=== PATIENT | male | born 1970 | race Two or more races ===

== ENCOUNTER 2025-01-24 21:27 | Inpatient (IN) | payer MEDICAID ==
[~2025-01-24] VITALS: Ht 172.7 cm; Wt 146.0 kg
--- NOTE | 2025-01-24 21:47 | ELECTROCARDIOGRAPH REPORT ---
[facility] Test Date: 2025-01-24 Test Time: 21:44:22 Pat Name: PAYTON GUIDO Department: EMERGENCY ROOM Room: ORTHO 4009 Gender: M Senior Clinical Study Manager: DARIUS : 1970 Requested By: JOSELINE DAVILA Order Number: [id number] Reading MD: Dr. Jone Hanna Measurements Intervals [address] Rate: 78 P: -2 RI: 150 QRS: -15 QRSD: 90 T: 15 QT: 414 QTc: 472 Interpretive Statements Sinus rhythm Borderline left axis deviation Low voltage, extremity and precordial leads Probable anteroseptal infarct, old Electronically Signed On 01-25-2025 11:00:[address] Jone Hanna Please click the below link to view image of tracing.
--- NOTE | 2025-01-24 21:58 | Physician Documentation ---
History of Present Illness ~ Chief Complaint: Bloody Stools Stated Complaint: GI BLEED Time Seen by MD: 21:30 HPI This is a 54-year-old gentleman with a known history of alcohol abuse, recent admission to a sent to hospital for upper GI bleed, comes in for a Gastroenterology consultation as a transfer from outside facility for evaluation of lower GI bleed. Evidently he had several bowel movements with a atiya blood and bright red blood per rectum. Not associated with a any new pain. No particular palliating or aggravating factors. Was found hypotensive and requiring transfusion at the outside facility. Upon arrival here he appears to be stable, denies any new complaints. Denies chest pain or difficulty breathing. Records from the outside facility reviewed. Patient's initial hemoglobin was 6.7. No repeat hemoglobin was done. Metabolic panel was notable for BUN of 12 and creatinine of 1.14 decreasing suspicion for upper GI bleed. Lipase was 180, normal CT angiography was obtained showing mild atherosclerotic changes, no evidence of significant vascular occlusion. No evidence of extravasation of contrast. Embolization coils between duodenum and pancreas noted. Patient was started octreotide bolus and drip, Protonix bolus and drip. He was given antibiotics. 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 HPI from the outside facility notes ant is a 54-year-old male who presents to the ED for evaluation of GI bleed. Third GI bleed, he has been to she has a, in the last 24 hours. History of GI bleeds in the past. Chest recently patient had a duodenal arterial bleed requiring coil placement. This was done at the [facility]. Represents to our emergency department in hemorrhagic shock. For the after I have any ER had a large amount of hematochezia stool. Patient received total of 4 units of blood calcium. He also received 2 units of FFP. He received a unit of platelets and subsequent 2 units FFP as well. Review of Systems ROS 10 point review of systems was performed and unless noted above in HPI is negative for acute process/complaint. Physical Exam Vital Signs: Temperature: 99.0, Source: Oral, Heart Rate: 77, Respiratory Rate: 20, BP: 137/79, Pulse Oximetry: 95, Weight: 146.000 Oxygen Flow Rate: 0 Physical Exam GENERAL: Awake, alert, oriented, GCS 15, no apparent distress, non-toxic appearing, answers questions, follows commands appropriately. HEENT: Atraumatic, normocephalic, pupils equal, extraocular muscles intact, sclerae anicteric, mucus membranes moist, oropharynx is clear, no stridor. NECK: supple, full active range of motion, trachea midline, no thyromegaly, no lymphadenopathy, no JVD. CARDIOVASCULAR: regular rate/rhythm, no murmurs/gallops/rubs, Pulses are 2+ in all extremities and symmetric. Capillary refill less than 2 seconds. PULMONARY: Nonlabored, good air movement ,no respiratory distress, speaking in full sentences, clear to auscultation bilaterally, no wheezing, no ronchi, no rales, no accessory muscle use. GASTROINTESTINAL: Soft, non-tender, non-distended, normal active bowel sounds, no organomegaly, no pulsatile masses, no CVA tenderness. NEUROLOGIC: Lucid with normal mental status. Normal facial symmetry. Moves all extremities symmetrically and with purpose. No truncal ataxia. Speech is fluid without evidence of dysarthria or aphasia, no focal deficits appreciated. MUSCULOSKELETAL: There is full range of motion of all extremities. There is no joint pain or joint swelling or joint erythema. There is no muscle pain or tenderness or swelling. EXTREMITIES: warm, well-perfused, no cyanosis, no clubbing, no edema, no acute deformities. Skin: warm, dry, no rashes or lesions, no jaundice, no petechiae orpurpura. No ecchymosis. PSYCHIATRIC: Normal affect, normal insight, normal concentration. Focused exam: [] Progress Results/Orders Results/Orders Orders - RANDY DAVILA DO Saline Lock (01/24/25 21:45) Monitor (01/24/25 21:45) Nothing By Mouth (01/25/25 Breakfast) Completed Orders - RANDY DAVILA DO Cbc/Diff (01/24/25 21:45) CMP (01/24/25 21:45) PBNP (01/24/25 21:45) Electrocardiogram (01/24/25 21:45) Type And Screen (01/24/25 21:48) Vital Signs 01/24/25 01/24/25 01/24/25 21:36 22:41 23:10 Temp 99.0 Pulse 77 75 Resp 20 21 18 B/P (MAP) 137/79 126/75 (92) Pulse Ox 95 94 O2 Flow Rate 0 0 Laboratory Tests Test 01/24/25 22:01 White Blood Count 9.2 Red Blood Count 3.95 L Hemoglobin 11.6 L Hematocrit 33.4 L Mean Corpuscular Volume 84.6 Mean Corpuscular Hemoglobin 29.3 Mean Corpuscular Hemoglobin Concent 34.6 Red Cell Distribution Width 19.7 H Platelet Count 239 Mean Platelet Volume 7.5 Neutrophils (%) (Auto) 65.1 Lymphocytes (%) (Auto) 21.1 Monocytes (%) (Auto) 9.9 Eosinophils (%) (Auto) 2.8 Basophils (%) (Auto) 1.1 H Neutrophils # (Auto) 6.0 Lymphocytes # (Auto) 1.9 Monocytes # (Auto) 0.9 Eosinophils # (Auto) 0.3 Basophils # (Auto) 0.1 CBC Comment Platelet Estimate Normal Red Blood Cell Morphology Perf Basophilic Stippling Anisocytosis 2+ Sodium Level 141 Potassium Level 4.6 Chloride Level 108 H Carbon Dioxide Level 26.7 Anion Gap 6 L Blood Urea Nitrogen 11 Creatinine 1.15 H Estimated GFR/1.73 m2 66 BUN/Creatinine Ratio 9.6 L Glucose Level 111 H Calcium Level 7.7 L Total Bilirubin 2.4 H Aspartate Amino Transf (AST/SGOT) 31 Alanine Aminotransferase (ALT/SGPT) 16 Alkaline Phosphatase 74 Pro-B-Type Natriuretic Peptide 434 H Total Protein 6.2 L Albumin 2.5 L Globulin 3.7 Albumin/Globulin Ratio 0.7 L Chemistry Comments EKG/XRAY/CT/US/VASC/MRI EKG : Additional Comment EKG was obtained and interpreted by myself showing sinus rhythm of 78, normal CA interval, narrow QRS, no QT prolongation, normal axis, no STEMI. Medical Decision Making Findings Facility Status: ED Holds, [facility] process The plan was discussed with the patient, who demonstrates clear understanding of the plan and is in agreement with the plan unless otherwise noted in the chart. All questions have been answered, all concerns were addressed unless otherwise documented. I was available throughout their ED stay for frequent reassessment and questions. Differential Diagnoses (considered and possible or likely): [Hemorrhoids, lower GI bleed, hemodynamically stability including hemorrhagic shock-resolved, very brisk upper GI bleed] ??Differential Diagnoses (considered and unlikely, not requiring evaluation currently): [No evidence of trauma] MDM Data Please see HPI for the following: Independent Historians and external Records Review. Historian: [Patient] Independent Historians: ?[Record review] Medication Management: [Reviewed medication list] Social History and determinants: [Reviewed] Please see the body of the note for the following: Any independent interpretations of ECG, imaging studies. All vitals signs/haemodynamics, ordered tests were independently reviewed and interpreted by myself. Nursing triage complaint and vitals reviewed, additional nursing notes were reviewed as available and I agree unless otherwise noted or documented in contradiction in the chart Vital Signs: Independently reviewed Labs: Independently interpreted Imaging: Independently interpreted Old Medical Records: Independently reviewed, see HPI for relevant summary and information Pulse Oximetry: [98%] interpreted as [normal on room air] by me [Business Consult: [Regular Rate, Regular rhythm, no ectopy, NSR] reviewed and interpreted by me] Additionally notably showing: [Hemodynamics reviewed. The patient was not febrile, not tachycardic, no evidence of hypotension. No evidence of respiratory distress. A CBC shows hemoglobin 11.6. There is a chance that patient might has been over transfused at the outside facility. Chemistry shows elevated bilirubin, elevated BNP not meeting criteria for CHF exacerbation. Mild elevation of creatinine noted.] Tests considered but not ordered include: [Advanced imaging has been considerably does not appear to be necessary given hemodynamic stability and the fact that it was already down the outside facility] Social Determinants of Health Impact: Patient was evaluated in [facility], [facility] [place] to healthcare due to below par ratio of patient to medical providers. [] Comorbid Conditions Impacting Present Evaluation and Care/Treatment: [Alcoholism, history of GI bleed, multiple see list] Management Discussions with other Healthcare Providers: [Hospitalist regarding admission] Treatment and Disposition Medication Management (Given or considered): []. See EMR for details Consideration for Hospitalization/Escalation/Deescalation of Care: Admission for inpatient management for further evaluation of his lower GI bleed ?ED Course:?[No clinical deterioration during observation. Appropriate with the floor rather than ICU at this time] ?Shared decision making:?[] Code status:?FULL Please see the full Electronic Medical Record for full details of nursing documentation, medications list, other records of complete past medical history and conditions, vital signs, laboratory studies, and any radiologic study interpretations by radiologists. Portions of this note were completed using [employer] dictation software and as a result there may exist minor errors in spelling. I have reviewed elements of past family and social history and agree as included in note. Departure Disposition: ADMITTED INPATIENT Admitted to Inpatient Unit: to hospitalist Impression: Primary Impression: Lower GI bleed requiring more than 4 units of blood in 24 hours, ICU, or surgery Condition: Improved Referrals: NO PRIMARY CARE PROVIDER (PCP) Signature Scribe Signature: No scribe Attestation: This note accurately reflects clinical decisions, work performed by myself, Randy Davila, RANDY DODSON DO January 24, 2025 21:58
[2025-01-24 22:19] LABS: BASOPHILS # (AUTO) 0.1 X10'3 (0-0.2); BASOPHILS % (AUTO) 1.1 % (0-1); EOSINOPHILS # (AUTO) 0.3 X10'3 (0-0.9); EOSINOPHILS % (AUTO) 2.8 % (0-6); HEMATOCRIT 33.4 % (42.0-52.0); HEMOGLOBIN 11.6 g/dl (14.0-17.9); LYMPHOCYTES # (AUTO) 1.9 X10'3 (1.1-4.8); LYMPHOCYTES % (AUTO) 21.1 % (21-51); MEAN CORPUSCULAR HEMOGLOBIN 29.3 PG (27.0-31.0); MEAN CORPUSCULAR HGB CONC 34.6 g/dL (33.0-36.5); MEAN CORPUSCULAR VOLUME 84.6 FL (78-98); MEAN PLATELET VOLUME 7.5 FL (7.4-10.4); MONOCYTES # (AUTO) 0.9 X10'3 (0-0.9); MONOCYTES % (AUTO) 9.9 % (2-12); NEUTROPHILS % (AUTO) 65.1 % (42-75); PLATELET COUNT 239 X10'3 (140-440); RED BLOOD COUNT 3.95 X10'6 (4.70-6.10); RED CELL DISTRIBUTION WIDTH 19.7 % (11.5-14.5); WHITE BLOOD COUNT 9.2 X10'3 (4.5-11.0)
[2025-01-24 22:31] LABS: ALANINE AMINOTRANSFERASE 16 U/L (12-78); ALBUMIN 2.5 G/DL (3.4-5.0); ALBUMIN/GLOBULIN RATIO 0.7 (1.1-1.5); ALKALINE PHOSPHATASE 74 IU/L (46-116); ANION GAP 6 (8-16); ASPARTATE AMINO TRANSFERASE 31 U/L (10-37); BILIRUBIN,TOTAL 2.4 MG/DL (0.1-1.0); BLOOD UREA NITROGEN 11 MG/DL (7-18); BUN/CREATININE RATIO 9.6 (10.0-20.0); CALCIUM 7.7 MG/DL (8.5-10.1); CHLORIDE 108 MMOL/L (99-107); CREATININE 1.15 MG/DL (0.60-1.10); GLUCOSE 111 MG/DL (70-104); POTASSIUM 4.6 MMOL/L (3.5-5.1); SODIUM 141 MMOL/L (135-145); TOTAL CARBON DIOXIDE 26.7 MMOL/L (24-32); TOTAL PROTEIN 6.2 G/DL (6.4-8.2); eCRCL 71 ML/MIN; eGFR 66 ML/MIN
[2025-01-24 22:35] LABS: ANISOCYTOSIS 2+; PLATELET ESTIMATE NORMAL
[2025-01-24 22:40] LABS: PRO BRAIN NATRIURETIC PEPTIDE 434 PG/ML (0-125)
[2025-01-24] MEDS ORDERED: PANT40TA54 PO (23:36)
[2025-01-24] MEDS ORDERED: TETR-59 PO (23:37)
[2025-01-24] MEDS ORDERED: METO-395 PO (23:52)
[2025-01-24] MEDS ORDERED: CEFD300C3 PO (23:53)
[2025-01-24] MEDS ORDERED: METR-159 PO (23:54)
[2025-01-24] MEDS ORDERED: LISI1TAB53 PO (23:55)
[2025-01-24] MEDS ORDERED: GABA300T28 PO (23:57)
[2025-01-24] MEDS ORDERED: FURO20TA4 PO (23:58)
[2025-01-24] MEDS ORDERED: POTA-205 PO (23:58)
[2025-01-25] VITALS (9 sets, daily range): BP systolic 97–127; BP diastolic 38–75; PULSE 70–82; RESP 16–22; TEMP 97.8–98.4; O2SAT 93–97
[2025-01-25] MEDS ORDERED: TIOT4MIS2 (00:02)
[2025-01-25] MEDS ORDERED: HYDR-3686 PO (00:02)
[2025-01-25] MEDS ORDERED: magnesium sulf-water 2g/50mL 50 ML IV PRN (02:20)
[2025-01-25] MEDS ORDERED: potassium Cl 20 mEq SR tablet PO PRN ×2 (02:20)
[2025-01-25] MEDS ORDERED: magnesium Cl slow-release 64mg tablet PO PRN (02:20)
[2025-01-25] MEDS ORDERED: magnesium sulf-water 4G/100mL 100 ML IV PRN (02:20)
[2025-01-25] MEDS ORDERED: potassium Cl 40MEQ/1/2NS 520ml 520 ML IV PRN (02:20)
--- NOTE | 2025-01-25 02:26 | HISTORY AND PHYSICAL-Residence ---
History & Physical Providers to CC Resident Creating Document: FRANKI FREY RES ~ History of Present Illness Reason for Admit\Complaint: GI Bleed History of Present Illness 54-year-old male with a history of prior alcohol abuse, hypertension, upper GI bleed, duodenal ulcers, hypertension, and COPD who presents to the ED as a transfer due to GI bleeding requiring 4 units of blood and needing a GI consultation. Yesterday patient was in his bathroom and had multiple episodes of melanotic stools and then he called the ambulance. On ambulance arrival his systolic blood pressure was in the 80s per patient and he was taken to the ED. hemoglobin on presentation was less than seven and was given 4 units of blood and transferred to our facility for ongoing care. Patient is currently hemodynamically stable with a hemoglobin of 11 and denies any more bleeding episodes since arrival Allergies: Coded Allergies: Penicillins (Verified Allergy, Unknown, 01/25/25) Home Medications Home Medications Active Reported Spiriva Respimat (Tiotropium [place]) 2.5 Mcg/Actuation Mist.inhal Atarax (Hydroxyzine Hcl) 25 Mg Tablet 1 Tab PO QID 10 Days Furosemide 20 Mg Tablet 2 Tab PO DAILY 30 Days Potassium Chloride 10 Meq Tab.prt.sr 1 Tab PO DAILY 30 Days Gabapentin ER (Gabapentin) 300 Mg Tab.er.24h PO BID 10 Days Lisinopril-Hctz 20-25 mg Tab (Lisinopril/Hydrochlorothiazide) 20 Mg-25 Mg Tablet 1 Tab PO DAILY 30 Days Flagyl* (Metronidazole) 500 Mg Tablet 1 Tab PO Q8H 9 Days Cefdinir 300 Mg Capsule 300 Mg PO BID 5 Days Metoprolol Succinate 25 Mg Tab.sr.24h 25 Mg PO DAILY Tetracycline Hcl 500 Mg Capsule 500 Mg PO QID 5 Days Pantoprazole Sodium 40 Mg Tablet.dr 1 Tab PO BID 30 Days Past Medical History Past Medical History Alcohol abuse COPD Neuropathy Hypertension Past Social History Social History Comment Prior alcoholic has been sober for seven years denies any tobacco abuse or recreational drug use Lives at home with his mother Exam Vitals: Vital Signs Date Time Temp Pulse Resp B/P (MAP) Pulse Ox O2 Delivery O2 Flow Rate FiO2 01/25/25 01:57 84 16 128/66 (86) 95 01/25/25 00:50 0 01/24/25 21:36 99.0 General: General: Obese male Awake and Alert, no acute distress. HEENT: Conjunctiva pink, Sclera clear, Mucus Membranes moist. Neck: Supple without masses and tenderness. Resp: Unlabored. Lungs clear to auscultation bilaterally. Heart: Regular Rate and rhythm, normal S1 and S2 without murmur, rub or gallop. Abdomen: Soft and non tender no organomegaly Extremities: Skin graft on bilateral lower extremity Skin: Warm and Dry. Diagnostic Data Last Recorded Lab Results: 01/24/25220001/24/252200 Advance Care Planning Advanced Care plannin - 30 Minutes Additional Plan GI bleed, suspect lower Recent duodenal arterial bleed s/p coil placement History of alcohol abuse Patient is currently hemodynamically stable most recent hemoglobin at 11.6. Received 4 units of blood before arrival. Tells me he has not drank in the last seven years. Consult GI in the morning she continues to bleed for endoscopy. He is NPO Continue LR 75 mL and Protonix 40 b.i.d. He has already been typed and crossed. 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 Hypertension Metoprolol succinate 25 mg COPD, not in exacerbation DuoNebs Code Status: Full DVT prophylaxis: SCD GI prophylaxis: Protonix Nutrition: NPO Prognosis: Fair Disposition: Continue medical management, GI consult in a.m. Franki Frey MD Internal Medicine Resident PGY-3 I saw and discussed the patient with the resident team and agree with assessment and plan as documented Date of Service: January 25, 2025 Billing Provider: JERSEY CARTAGENA MD, TOBIN, RES January 25, 2025 02:26 JERSEY CARTAGENA MD January 25, 2025 07:35
[2025-01-25] MEDS: ringers solution, lacted 1,000 ML IV SCH (04:16)
[2025-01-25 04:47] LABS: HEMOGLOBIN A1C 5.3 % (4.5-6.2)
[2025-01-25] MEDS: ipratropium/albuterol 3ml nebule NEB SCH (07:49)
[2025-01-25] MEDS ORDERED: pantoprazole 40MG/NS 100ML BAG 100 ML IV SCH (08:00)
[2025-01-25] MEDS ORDERED: gabapentin 400mg capsule PO SCH (08:00)
[2025-01-25] MEDS: K and/or MAG REPLACEMENT MC SCH (08:00)
[2025-01-25 09:10] LABS: BASOPHILS # (AUTO) 0.1 X10'3 (0-0.2); BASOPHILS % (AUTO) 1.1 % (0-1); EOSINOPHILS # (AUTO) 0.4 X10'3 (0-0.9); EOSINOPHILS % (AUTO) 5.3 % (0-6); HEMATOCRIT 31.2 % (42.0-52.0); HEMOGLOBIN 10.7 g/dl (14.0-17.9); LYMPHOCYTES # (AUTO) 1.6 X10'3 (1.1-4.8); MEAN CORPUSCULAR HEMOGLOBIN 29.2 PG (27.0-31.0); MEAN CORPUSCULAR HGB CONC 34.3 g/dL (33.0-36.5); MEAN PLATELET VOLUME 7.6 FL (7.4-10.4); MONOCYTES # (AUTO) 0.7 X10'3 (0-0.9); MONOCYTES % (AUTO) 10.4 % (2-12); NEUTROPHILS % (AUTO) 59.2 % (42-75); PLATELET COUNT 249 X10'3 (140-440); RED BLOOD COUNT 3.67 X10'6 (4.70-6.10); RED CELL DISTRIBUTION WIDTH 21.1 % (11.5-14.5); WHITE BLOOD COUNT 6.7 X10'3 (4.5-11.0)
[2025-01-25 09:12] LABS: ALANINE AMINOTRANSFERASE 16 U/L (12-78); ALBUMIN 2.2 G/DL (3.4-5.0); ALBUMIN/GLOBULIN RATIO 0.6 (1.1-1.5); ALKALINE PHOSPHATASE 71 IU/L (46-116); ANION GAP 3 (8-16); ASPARTATE AMINO TRANSFERASE 25 U/L (10-37); BILIRUBIN,TOTAL 1.5 MG/DL (0.1-1.0); BLOOD UREA NITROGEN 9 MG/DL (7-18); CALCIUM 8.2 MG/DL (8.5-10.1); CHLORIDE 111 MMOL/L (99-107); CREATININE 1.12 MG/DL (0.60-1.10); GLUCOSE 108 MG/DL (70-104); POTASSIUM 4.4 MMOL/L (3.5-5.1); SODIUM 141 MMOL/L (135-145); TOTAL CARBON DIOXIDE 26.6 MMOL/L (24-32); TOTAL PROTEIN 5.8 G/DL (6.4-8.2); eCRCL 73 ML/MIN; eGFR 68 ML/MIN
[2025-01-25] MEDS: metoprolol succinate 25mg (24-HOUR) SR. Tablet PO SCH (10:24)
[2025-01-25] MEDS: pantoprazole 40 MG vial IV SCH (10:24)
[2025-01-25] MEDS: gabapentin 300mg capsule PO SCH ×2 (10:24→19:27)
[2025-01-25] MEDS ORDERED: ipratropium/albuterol 3ml nebule NEB PRN (11:00)
[2025-01-25] MEDS ORDERED: albuterol 2.5 MG/3 ML nebule NEB PRN (12:20)
--- NOTE | 2025-01-25 12:52 | CONSULTATION REPORT - RESIDENT ---
Consult Providers to CC Resident Creating Document: CHAN ANGEL RES History of Present Illness Reason for Admit\\Complaint: Melena History of Present Illness The patient is a 54-year-old male with a significant medical history including prior alcohol abuse (last drink reported 7 years ago), hypertension, COPD, and a known duodenal arterial bleed treated with coil embolization. He presents with suspected lower gastrointestinal (GI) bleeding after multiple episodes of melena prior to admission. On arrival, he was found to have a hemoglobin of <7 g/dL, requiring transfusion of 4 units of packed red blood cells. He was subsequently transferred to our facility for further evaluation and management. The patient reports that his symptoms began acutely yesterday while at home when he had multiple episodes of dark tarry stools accompanied by dizziness and lightheadedness. He called emergency services, and upon their arrival, his systolic blood pressure was reportedly in the 80s. He denies any further episodes of melena or dizziness since his transfer and states that he currently feels stable. The patient describes a prior admission to [facility] on January 02, where he experienced vomiting of black blood and melena, leading to a 20-day hospitalization. During that admission, he required ICU-level care for hypotension lasting 5 days. He underwent two esophagogastroduodenoscopies (EGDs), though he is unclear about the results or specific interventions performed, apart from his recall of something cauterized". He recalls a prior EGD 12 years ago, which showed stomach ulcers, and a colonoscopy 4 years ago, which was normal and identified hemorrhoids. He also reports being admitted for pneumonia management shortly before his January 02 hospitalization. He denies any history of bright red blood per rectum, abdominal pain, nausea, or vomiting during this current presentation. He has a history of chronic alcohol use but has abstained since his duodenal arterial bleed 7 years ago. Currently, the patient is hemodynamically stable with a hemoglobin level of 11.6 g/dL and denies any further symptoms of active bleeding since his arrival. He is on maintenance fluids, and GI was consulted. He expresses understanding of his condition and is cooperative with the treatment plan. Allergies: Coded Allergies: Penicillins (Verified Allergy, Unknown, 01/25/25) Home Medications Home Medications Active Reported Spiriva Respimat (Tiotropium [place]) 2.5 Mcg/Actuation Mist.inhal Atarax (Hydroxyzine Hcl) 25 Mg Tablet 1 Tab PO QID 10 Days Furosemide 20 Mg Tablet 2 Tab PO DAILY 30 Days Potassium Chloride 10 Meq Tab.prt.sr 1 Tab PO DAILY 30 Days Gabapentin ER (Gabapentin) 300 Mg Tab.er.24h PO BID 10 Days Lisinopril-Hctz 20-25 mg Tab (Lisinopril/Hydrochlorothiazide) 20 Mg-25 Mg Tablet 1 Tab PO DAILY 30 Days Flagyl* (Metronidazole) 500 Mg Tablet 1 Tab PO Q8H 9 Days Cefdinir 300 Mg Capsule 300 Mg PO BID 5 Days Metoprolol Succinate 25 Mg Tab.sr.24h 25 Mg PO DAILY Tetracycline Hcl 500 Mg Capsule 500 Mg PO QID 5 Days Pantoprazole Sodium 40 Mg Tablet.dr 1 Tab PO BID 30 Days Past Medical History Past Medical History COPD TIA Peptic Ulcer Disease Alcohol abuse Neuropathy Hypertension Past Surgical History Surgical History Comment Skin Grafts for 3 degree Ashley Tracheostomy History of Duodenal Arterial Bleed (s/p Coil Placement) Past Social History Social History Comment Denied Smoking and illicit drug abuse Quit Alcohol in 2017, prior to that he admits to drinking 2 large cans of beers daily for approximately 25 years. ROS ROS Reviewed in full, pertinent positive per HPI. Exam Vitals: Vital Signs Date Time Temp Pulse Resp B/P (MAP) Pulse Ox O2 Delivery O2 Flow Rate FiO2 01/25/25 10:00 97.8 79 16 99/44 (62) 97 Room Air 01/25/25 08:35 0.0 21 General: Awake , alert, and oriented x4, resting comfortably in the bed, in no acute distress HEENT: Atraumatic, normocephalic, EOMI, anicteric sclera ; pink conjunctiva Neck: Trachea midline. Supple, full range of motion, no JVD Cardiac: Regular rhythm, regular rate with sustolic murmurs mitral area. Respiratory: Equal breath sounds bilaterally, no tachypnea, no wheezing ,rub or rales, Chest wall is symmetric and without deformity. Gastrointestinal: Abdomen symmetric, non-distended, soft, non-tender, normal bowel sounds x4 quadrant, normoactive, no hepatosplenomegaly Rectal examination- No hemorrhoids Musculoskeletal: No pedal edema, no cyanosis, chronic graft wounds seen on bilateral legs Neurological: Speech is clear, alert, and oriented x 4. No motor or sensory deficit, deep tendon reflexes normal, cerebellar intact. Cranial nerves II-XII intact. Skin: Warm and dry Diagnostic Data Last Recorded Lab Results: 01/25/2583001/25/25830 Additional Plan Upper GI Bleed (Recurrent): The patient has a history of a duodenal ulcer with an arterial bleed treated with coil embolization, recent hospitalization for melena and hematemesis in December 2024, and significant anemia requiring transfusion. The current presentation with melena, hypotension, and hemoglobin <7 g/dL, followed by stabilization after transfusion, strongly suggests recurrent upper GI bleeding]. possibly due the same pathology. Plan: NPO after midnight. Repeat EGD to evaluate for recurrent upper GI source, particularly at the site of prior duodenal coil placement tomorrow and, and if warranted therapeutic interventions during endoscopy. Maintain LR at 75 mL/hour for fluid resuscitation. Protonix 40 mg IV b.i.d. for acid suppression. Monitor hemoglobin and vital signs closely every 6-12 hours. Transfuse PRBCs if hemoglobin drops below 7 g/dL. Consider adding IV octreotide if there is suspicion of variceal bleeding, though current history does not strongly suggest this etiology. History of Duodenal Arterial Bleed (s/p embolization therapy): Prior intervention for duodenal arterial bleeding is a critical risk factor for recurrent upper GI bleeding. Plan: Request records from prior hospitalizations, particularly from [facility], to review previous EGD findings, interventions, and post-coil imaging reports. Plan to reassess coil placement during endoscopy or imaging to rule out complications or recurrent bleeding at the same site. Chronic Alcohol Use (Abstinent for 7 Years): History of significant alcohol use, which may have contributed to prior GI bleeding, though the patient reports long-term abstinence. Plan: Reinforce the importance of continued abstinence and provide support resources if needed. COPD (Stable): No active exacerbation. Plan: Continue DuoNeb as needed. Monitor respiratory status, especially during sedation for any procedures. Hypertension: History of controlled hypertension. Plan: Continue metoprolol succinate 25 mg daily. Monitor blood pressure, especially in the context of bleeding risk and fluid resuscitation. Neuropathy (Secondary to Ashley): Chronic neuropathy managed with gabapentin. Plan: Continue gabapentin 300 mg b.i.d. for symptom control. DVT Prophylaxis: Use sequential compression devices (SCDs) for prophylaxis. Prognosis: Prognosis is fair, given current hemodynamic stability, but the patient remains at risk for recurrent bleeding. GI Recommendations: Continue close monitoring. GI to evaluate and proceed with repeat EGD for diagnostic and therapeutic purposes as needed tomorrow. Escalate care if hemodynamic instability or recurrent bleeding develops. Chan Angel Internal Medicine Resident, PGY1 Date of Service: January 25, 2025 Billing Provider: JOVANY PEREZ MD, GAURAV, RES January 25, 2025 12:52 JOVANY PEREZ MD Jan 26, 2025 11:16
[2025-01-25 13:20] LABS: HEMATOCRIT 30.8 % (42.0-52.0); HEMOGLOBIN 10.7 g/dl (14.0-17.9); MEAN CORPUSCULAR HEMOGLOBIN 29.9 PG (27.0-31.0); MEAN CORPUSCULAR HGB CONC 34.8 g/dL (33.0-36.5); MEAN CORPUSCULAR VOLUME 85.9 FL (78-98); MEAN PLATELET VOLUME 7.6 FL (7.4-10.4); PLATELET COUNT 254 X10'3 (140-440); RED BLOOD COUNT 3.59 X10'6 (4.70-6.10); RED CELL DISTRIBUTION WIDTH 20.8 % (11.5-14.5); WHITE BLOOD COUNT 6.3 X10'3 (4.5-11.0)
[2025-01-25] MEDS: morphine 2 MG/ML inj. syringe IV PRN (13:26)
[2025-01-25 17:36] LABS: MEAN CORPUSCULAR HGB CONC 33.3 g/dL (33.0-36.5); MEAN CORPUSCULAR VOLUME 87.1 FL (78-98); MEAN PLATELET VOLUME 7.7 FL (7.4-10.4); PLATELET COUNT 244 X10'3 (140-440); RED BLOOD COUNT 3.79 X10'6 (4.70-6.10); WHITE BLOOD COUNT 6.6 X10'3 (4.5-11.0)
[2025-01-26] VITALS (23 sets, daily range): BP systolic 98–152; BP diastolic 6–91; PULSE 58–82; RESP 16–26; TEMP 97.8–98.6; O2SAT 90–99
[2025-01-26 06:53] LABS: BASOPHILS # (AUTO) 0.1 X10'3 (0-0.2); BASOPHILS % (AUTO) 0.9 % (0-1); EOSINOPHILS # (AUTO) 0.4 X10'3 (0-0.9); EOSINOPHILS % (AUTO) 6.3 % (0-6); HEMATOCRIT 31.9 % (42.0-52.0); HEMOGLOBIN 10.8 g/dl (14.0-17.9); LYMPHOCYTES # (AUTO) 1.5 X10'3 (1.1-4.8); LYMPHOCYTES % (AUTO) 23.4 % (21-51); MEAN CORPUSCULAR HEMOGLOBIN 29.2 PG (27.0-31.0); MEAN CORPUSCULAR HGB CONC 33.8 g/dL (33.0-36.5); MEAN CORPUSCULAR VOLUME 86.2 FL (78-98); MEAN PLATELET VOLUME 7.3 FL (7.4-10.4); MONOCYTES # (AUTO) 0.8 X10'3 (0-0.9); MONOCYTES % (AUTO) 12.6 % (2-12); NEUTROPHILS # (AUTO) 3.7 X10'3 (1.8-7.7); NEUTROPHILS % (AUTO) 56.8 % (42-75); PLATELET COUNT 251 X10'3 (140-440); RED CELL DISTRIBUTION WIDTH 21.3 % (11.5-14.5); WHITE BLOOD COUNT 6.5 X10'3 (4.5-11.0)
[2025-01-26 07:04] LABS: APTT 28 SECONDS (22-32); INR 1.2 INR; PROTHROMBIN TIME 11.7 SECONDS (9.0-12.0)
[2025-01-26 07:12] LABS: ALANINE AMINOTRANSFERASE 11 U/L (12-78); ALBUMIN 2.2 G/DL (3.4-5.0); ALBUMIN/GLOBULIN RATIO 0.6 (1.1-1.5); ALKALINE PHOSPHATASE 73 IU/L (46-116); ANION GAP 7 (8-16); ASPARTATE AMINO TRANSFERASE 24 U/L (10-37); BILIRUBIN,TOTAL 1.4 MG/DL (0.1-1.0); BLOOD UREA NITROGEN 7 MG/DL (7-18); BUN/CREATININE RATIO 6.5 (10.0-20.0); CALCIUM 8.3 MG/DL (8.5-10.1); CHLORIDE 108 MMOL/L (99-107); CHOL/HDL RATIO 2.8 (0.00-4.99); CHOLESTEROL 97 MG/DL (0-200); CREATININE 1.08 MG/DL (0.60-1.10); GLUCOSE 78 MG/DL (70-104); HDL CHOLESTEROL 35 MG/DL (35-60); LDL CHOLESTEROL 51 MG/DL (50-100); MAGNESIUM 1.8 MG/DL (1.5-2.4); SODIUM 142 MMOL/L (135-145); TOTAL CARBON DIOXIDE 27.4 MMOL/L (24-32); TOTAL PROTEIN 6.1 G/DL (6.4-8.2); TRIGLYCERIDES 104 MG/DL (20-135); eCRCL 76 ML/MIN; eGFR 71 ML/MIN
[2025-01-26 08:01] LABS: ANISOCYTOSIS 3+; PLATELET ESTIMATE NORMAL
[2025-01-26 08:02] LABS: POLYCHROMASIA FEW
[2025-01-26] MEDS ORDERED: succinylcholine 20mg/ml inj IV ONE (09:43)
[2025-01-26] MEDS ORDERED: propofol inj 20 ML IV ONE (09:43)
[2025-01-26] MEDS ORDERED: LIDOcaine 1%/PF 5ML 10 MG/ML VIAL ONE (09:43)
[2025-01-26] MEDS ORDERED: sevoflurane 250ml liquid IH ONE (10:40)
[2025-01-26] MEDS ORDERED: fentaNYL/PF 50MCG/1 ML 2ML syringe ONE (10:42)
[2025-01-26] MEDS ORDERED: MIDAZolam 1 MG/ML 5ML VIAL ONE (10:43)
[2025-01-26] MEDS ORDERED: albuterol 2.5 MG/3 ML nebule NEB PRN (10:45)
--- NOTE | 2025-01-26 10:45 | PROGRESS NOTE ---
Daily Progress Note Providers to CC ~ Antibiotic Timeout Antibiotic Ordered?: No Subjective No acute events overnight. Patient examined at bedside. No new complaints, not in acute distress. Patient denies chest pain, sob, palpitations, abdominal pain, n/v/d. Vss, labs notable for stable H/H. EGD today with findings notable for normal appearance without evidence of erosions, ulcers, or varices, a few non bleeding crated gastric ulcers with no bleeding in gastric antrum, diffuse mucosal changes with congestion, erythema and erosion in antrum an in pre pyloric region of the stomach, a few non-bleeding cratered duodenal ulcers with no stigmata of bleeding in duodenal bulb. Awaiting MR from [facility] for pre/post-coil imaging. CTA abdomen/pelvis shows no active extravasation of arterial contrast demonstrated to suggest active arterial bleeding and postsurgical changes with vascular coil material adjacent to the duodenum consistent with recent history. 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 Denies alcohol intake for past 7 years -01/25: consulted GI Dr. Ash -01/26: EGD today with findings notable for normal appearance without evidence of erosions, ulcers, or varices, a few non bleeding crated gastric ulcers with no bleeding in gastric antrum, diffuse mucosal changes with congestion, erythema and erosion in antrum an in pre pyloric region of the stomach, a few non- bleeding cratered duodenal ulcers with no stigmata of bleeding in duodenal bulb. , awaiting MR from [facility] for pre/post-coil imaging; CTA abdomen/pelvis shows no active extravasation of arterial contrast demonstrated to suggest active arterial bleeding and postsurgical changes with vascular coil material adjacent to the duodenum consistent with recent history. 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
[2025-01-26] MEDS ORDERED: iohexol 350MG/ML 100ml bottle IV ONE (11:42)
--- NOTE | 2025-01-26 11:54 | PROGRESS NOTE- Residence ---
Progress Note - Resident Providers to CC Resident Creating Document: CHAN WYATT, RES ~ Antibiotic Timeout Antibiotic Ordered?: No Subjective Post Procedural EGD Note: Procedure: Upper Endoscopy (Esophagogastroduodenoscopy - EGD) Indications: Evaluation of suspected upper recurrent GI bleed and anemia. Findings: Esophagus: Normal appearance without evidence of erosions, ulcers, or varices. Stomach: A few non bleeding crated gastric ulcers with no bleeding in gastric antrum, diffuse mucosal changes with congestion, erythema and erosion in antrum an in pre pyloric region of the stomach. Duodenum: Few non-bleeding cratered duodenal ulcers with no stigmata of bleeding in duodenal bulb Complications: None. Recommendations: Return patient to [facility]. Resume diet as tolerated. Continue current medications, including proton pump inhibitors. Plan: Reinforce the importance of avoiding potential triggers (e.g., NSAIDs, alcohol). Objective Vital Signs Date Time Temp Pulse Resp B/P (MAP) Pulse Ox O2 Delivery O2 Flow Rate FiO2 01/26/25 11:00 Mechanical Ventilator 01/26/25 10:10 98.6 73 20 01/26/25 06:45 97 0.0 21 01/26/25 06:00 151/82 (105) Result Diagram: 01/26/25 0544 01/26/25 0544 Coagulation Studies Laboratory Tests Test 01/26/25 05:44 Prothrombin Time 11.7 SECONDS (9.0-12.0) INR International Normalized Ratio 1.2 INR Activated Partial Thromboplast Time 28 SECONDS (22-32) Coagulation Comments Date of Service: Jan 26, 2025 Billing Provider: JOVANY PEREZ MD, GAURAV, RES Jan 26, 2025 11:54
--- NOTE | 2025-01-26 16:50 | RADIOLOGY REPORT ---
CLINICAL INFORMATION: 54 years old, Male; duodenal arterial bleeding. TECHNIQUE: Axial CTA images of the abdomen and pelvis were obtained after the uneventful administrati on of 100 mL of Omnipaque 350 IV contrast. Coronal and sagittal reformatted images and MIP images wer e obtained, reviewed, and stored. One or more of the following dose reduction techniques were used: A utomated exposure control. Adjustment of mA and/or kV according to patient size. CTDIvol = 35.59, 23 .27, 0.07, 0.07 mGy DLP = 2211.17 mGy-cm COMPARISON: None FINDINGS: There is no abdominal aortic aneurysm or dissection. Moderate atherosclerotic calcification of the abdominal aorta and its main branches. No visualized active extravasation of contrast identif ied to suggest active arterial bleeding. There is vascular coil material in the right upper abdomen a djacent to the duodenum. The origins of the celiac artery, SMA, bilateral renal arteries, and JAYLEN are patent. Common iliac and internal and external iliac arteries are patent. There are moderate pleural effusions partially visualized bilaterally with overlying compressive atel ectasis. Cirrhotic liver morphology. Small calcifications along the periphery of the gallbladder, may be calcified gallstones or gallbladder wall calcifications. No biliary ductal dilatation. Prominent varices adjacent to the spleen. The spleen, pancreas, adrenal glands, and kidneys appear otherwise un remarkable. Nonspecific nondilated fluid-filled small bowel loops. No small bowel obstruction. Scatte red colonic diverticula without adjacent inflammatory changes to suggest diverticulitis. Appendix is visualized and appears unremarkable. Prostate and bladder are within normal limits. There are varicos ities in the ventral abdominal wall. Recannulated umbilical vein also noted. No acute or suspicious o sseous abnormality identified. IMPRESSION: 1. No abdominal aortic aneurysm or dissection. 2. No active extravasation of arterial contrast demonstrated to suggest active arterial bleeding. 3. Postsurgical changes with vascular coil material adjacent to the duodenum. 4. Cirrhotic liver morphology and sequela of portal hypertension as described above. 5. Nonspecific nondilated fluid-filled small bowel loops. Findings may be seen with ileus or enteriti s in the appropriate clinical setting. No small bowel obstruction. 6. Scattered colonic diverticula without adjacent inflammatory changes to suggest diverticulitis.
[2025-01-26] MEDS: morphine 4 MG/ML inj SYRINge IV PRN (23:27)
[2025-01-27 06:00] VITALS: BP 108/59; PULSE 80; RESP 18; TEMP 97.8; O2SAT 94
[2025-01-27 06:35] LABS: BASOPHILS % (AUTO) 0.8 % (0-1); EOSINOPHILS # (AUTO) 0.5 X10'3 (0-0.9); EOSINOPHILS % (AUTO) 8.9 % (0-6); HEMATOCRIT 34.5 % (42.0-52.0); HEMOGLOBIN 11.6 g/dl (14.0-17.9); LYMPHOCYTES # (AUTO) 1.5 X10'3 (1.1-4.8); LYMPHOCYTES % (AUTO) 27.1 % (21-51); MEAN CORPUSCULAR HEMOGLOBIN 29.3 PG (27.0-31.0); MEAN CORPUSCULAR HGB CONC 33.5 g/dL (33.0-36.5); MEAN CORPUSCULAR VOLUME 87.3 FL (78-98); MEAN PLATELET VOLUME 7.3 FL (7.4-10.4); MONOCYTES # (AUTO) 0.6 X10'3 (0-0.9); MONOCYTES % (AUTO) 11.9 % (2-12); NEUTROPHILS # (AUTO) 2.8 X10'3 (1.8-7.7); NEUTROPHILS % (AUTO) 51.3 % (42-75); PLATELET COUNT 252 X10'3 (140-440); RED BLOOD COUNT 3.95 X10'6 (4.70-6.10); RED CELL DISTRIBUTION WIDTH 22.3 % (11.5-14.5); WHITE BLOOD COUNT 5.4 X10'3 (4.5-11.0)
[2025-01-27 06:49] LABS: APTT 28 SECONDS (22-32); INR 1.2 INR; PROTHROMBIN TIME 11.8 SECONDS (9.0-12.0)
[2025-01-27 06:57] LABS: ALANINE AMINOTRANSFERASE 10 U/L (12-78); ALBUMIN 2.2 G/DL (3.4-5.0); ALBUMIN/GLOBULIN RATIO 0.5 (1.1-1.5); ALKALINE PHOSPHATASE 92 IU/L (46-116); ANION GAP 8 (8-16); ASPARTATE AMINO TRANSFERASE 30 U/L (10-37); BILIRUBIN,TOTAL 1.1 MG/DL (0.1-1.0); BLOOD UREA NITROGEN 6 MG/DL (7-18); BUN/CREATININE RATIO 5.5 (10.0-20.0); CALCIUM 8.1 MG/DL (8.5-10.1); CHLORIDE 106 MMOL/L (99-107); GLUCOSE 83 MG/DL (70-104); MAGNESIUM 1.8 MG/DL (1.5-2.4); PHOSPHORUS 4.2 MG/DL (2.3-4.5); POTASSIUM 3.8 MMOL/L (3.5-5.1); SODIUM 141 MMOL/L (135-145); TOTAL CARBON DIOXIDE 26.9 MMOL/L (24-32); TOTAL PROTEIN 6.4 G/DL (6.4-8.2); eCRCL 74 ML/MIN; eGFR 70 ML/MIN
[2025-01-27 08:00] VITALS: RESP 16; O2SAT 94
--- NOTE | 2025-01-27 10:47 | PROGRESS NOTE- Residence ---
Progress Note - Resident Providers to CC Resident Creating Document: CHAN ANGEL RES ~ Antibiotic Timeout Antibiotic Ordered?: No Subjective Patient was seen and examined at bedside, patient is stable with a hemoglobin of 11. No further episodes of melena Objective Vital Signs Date Time Temp Pulse Resp B/P (MAP) Pulse Ox O2 Delivery O2 Flow Rate FiO2 01/27/25 08:00 16 94 Room Air 01/27/25 06:00 67 01/27/25 06:00 97.8 108/59 (75) 01/26/25 20:09 0 21 Result Diagram: 01/27/25 0608 01/27/25 0608 Awake , alert, and oriented x4, resting comfortably in the bed, in no acute distress HEENT: Atraumatic, normocephalic, EOMI, anicteric sclera ; pink conjunctiva Neck: Trachea midline. Supple, full range of motion, no JVD Cardiac: Regular rhythm, regular rate with sustolic murmurs mitral area. Respiratory: Equal breath sounds bilaterally, no tachypnea, no wheezing ,rub or rales, Chest wall is symmetric and without deformity. Gastrointestinal: Abdomen symmetric, non-distended, soft, non-tender, normal bowel sounds x4 quadrant, normoactive, no hepatosplenomegaly Rectal examination- No hemorrhoids Musculoskeletal: No pedal edema, no cyanosis, chronic graft wounds seen on bilateral legs Neurological: Speech is clear, alert, and oriented x 4. No motor or sensory deficit, deep tendon reflexes normal, cerebellar intact. Cranial nerves II-XII intact. Skin: Warm and dry Coagulation Studies Laboratory Tests Test 01/27/25 06:08 Prothrombin Time 11.8 SECONDS (9.0-12.0) INR International Normalized Ratio 1.2 INR Activated Partial Thromboplast Time 28 SECONDS (22-32) Coagulation Comments Advance Care Planning Advanced Care plannin - 30 Minutes Assessment Assessment The patient is a 54-year-old male who presented with hemoglobin of <7 g/dL, requiring transfusion of 4 units of packed red blood cells. The patient describes a prior admission to [facility] on January 02, where he experienced vomiting of black blood and melena, leading to a 20-day hospitalization. During that admission, he required ICU-level care for hypotension lasting 5 days. He underwent two esophagogastroduodenoscopies (EGDs), though he is unclear about the results or specific interventions performed, apart from his recall of something cauterized". He recalls a prior EGD 12 years ago, which showed stomach ulcers, and a colonoscopy 4 years ago, which was normal and identified hemorrhoids. Plan Plan Upper GI Bleed (Recurrent): The patient has a history of a duodenal ulcer with an arterial bleed treated with coil embolization, recent hospitalization for melena and hematemesis in December 2024, and significant anemia requiring transfusion. The current presentation with melena, hypotension, and hemoglobin <7 g/dL, followed by stabilization after transfusion, strongly suggests recurrent upper GI bleeding]. possibly due the same pathology. Plan: Maintain LR at 75 mL/hour for fluid resuscitation. Protonix 40 mg IV b.i.d. for acid suppression. Monitor hemoglobin and vital signs closely every 6-12 hours. Transfuse PRBCs if hemoglobin drops below 7 g/dL. EGD showed: Normal esophagus without evidence of erosions, ulcers, or varices. A few non bleeding crated gastric ulcers with no bleeding in gastric antrum, diffuse mucosal changes with congestion, erythema and erosion in antrum an in pre pyloric region of the stomach. Few non-bleeding cratered duodenal ulcers with no stigmata of bleeding in duodenal bulb CTA abdomen/pelvis shows no active extravasation of arterial contrast demonstrated to suggest active arterial bleeding and postsurgical changes with vascular coil material adjacent to the duodenum consistent with recent history. History of Duodenal Arterial Bleed (s/p embolization therapy): Prior intervention for duodenal arterial bleeding is a critical risk factor for recurrent upper GI bleeding. Awaiting records from prior hospitalizations, particularly from [facility], to review previous EGD findings, interventions, and post-coil imaging reports. Chronic Alcohol Use (Abstinent for 7 Years): History of significant alcohol use, which may have contributed to prior GI bleeding, though the patient reports long-term abstinence. Reinforce the importance of continued abstinence and provide support resources if needed. COPD (Stable): No active exacerbation. Continue DuoNeb as needed. Monitor respiratory status, especially during sedation for any procedures. Hypertension: History of controlled hypertension. Continue metoprolol succinate 25 mg daily. Monitor blood pressure, especially in the context of bleeding risk and fluid resuscitation. Neuropathy (Secondary to Ashley): Chronic neuropathy managed with gabapentin. Continue gabapentin 300 mg b.i.d. for symptom control. DVT Prophylaxis: Use sequential compression devices (SCDs) for prophylaxis. Prognosis: Prognosis is fair, given current hemodynamic stability, but the patient remains at risk for recurrent bleeding. GI Recommendations: Continue close monitoring. Outpatient follow up with PCP and [facility] care if hemodynamic instability or recurrent bleeding develops. Chan Angel Internal Medicine Resident, PGY1 Date of Service: Jan 27, 2025 Billing Provider: JOVANY PEREZ MD, GAURAV, RES Jan 27, 2025 10:47
--- NOTE | 2025-01-27 13:48 | DISCHARGE SUMMARY ---
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 Hypertension Class III obesity COPD, not in exacerbation Operations\\Procedures: EGD Consultants: GI Rehan Beltran Complications: None Condition on DC: Stable Continued Medications: Gabapentin (Gabapentin ER) 300 Mg Tab.er.24h PO BID for 10 Days Hydroxyzine Hcl (Atarax) 25 Mg Tablet 1 TAB PO QID for 10 Days, #30 TAB 0 Refills Lisinopril/Hydrochlorothiazide (Lisinopril-Hctz 20-25 mg Tab) 20 Mg-25 Mg Tablet 1 TAB PO DAILY for 30 Days, #30 TAB 0 Refills Metoprolol Succinate (Metoprolol Succinate) 25 Mg Tab.sr.24h 25 MG PO DAILY, #30 TAB.SR 0 Refills Pantoprazole Sodium (Pantoprazole Sodium) 40 Mg Tablet.dr 1 TAB PO BID for 30 Days, #30 TAB 0 Refills Tiotropium [place] (Spiriva Respimat) 2.5 Mcg/Actuation Mist.inhal Discontinued Medications: Cefdinir (Cefdinir) 300 Mg Capsule 300 MG PO BID for 5 Days, CAP Furosemide (Furosemide) 20 Mg Tablet 2 TAB PO DAILY for 30 Days, #30 TAB 0 Refills Metronidazole* (Flagyl*) 500 Mg Tablet 1 TAB PO Q8H for 9 Days, #30 TAB Potassium Chloride (Potassium Chloride) 10 Meq Tab.prt.sr 1 TAB PO DAILY for 30 Days, #30 TAB 0 Refills Tetracycline Hcl (Tetracycline Hcl) 500 Mg Capsule 500 MG PO QID for 5 Days, CAP Discharge Summary: History of Present Illness From H&: Camden Simmons is a "54-year-old male with a history of prior alcohol abuse, hypertension, upper GI bleed, duodenal ulcers, hypertension, and COPD who presents to the ED as a transfer due to GI bleeding requiring 4 units of blood and needing a GI consultation. Yesterday patient was in his bathroom and had mu ltiple episodes of melanotic stools and then he called the ambulance. On ambulance arrival his systolic blood pressure was in the 80s per patient and he was taken to the ED. hemoglobin on presentation was less than seven and was given 4 units of blood and transferred to our facility for ongoing care. Patient is currently hemodynamically stable with a hemoglobin of 11 and denies any more bleeding episodes since arrival." Hospital Course After receiving 4 units of PRBC at the transferring facility, H/H remained stable. Case was consulted with GI Dr. Ash given high risk for recurrent bleeding with recent history of duodenal coiling, patient underwent EGD on 01/26/25 with findings notable for normal appearance without evidence of erosions, ulcers, or varices, a few non bleeding crated gastric ulcers with no bleeding in gastric antrum, diffuse mucosal changes with congestion, erythema and erosion in antrum an in pre pyloric region of the stomach, a few non- bleeding cratered duodenal ulcers with no stigmata of bleeding in duodenal bulb. CTA abdomen/pelvis shows no active extravasation of arterial contrast dem onstrated to suggest active arterial bleeding and postsurgical changes with vascular coil material adjacent to the duodenum consistent with recent history. Patient did not experience further complications throughout the entire hospital stay and remained clinically and hemodynamically stable. Patient was seen and examined on the day of discharge. On day of discharge, vss and labs un remarkable. H/H remained stable and uptrending. All labs, diagnostic workups, discharge plan discussed with patient in details during visit before discharge. All questions and concerns answered to the best of my professional knowledge. 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
== END 2025-01-27 13:56 | disposition home or self-care (01) | DRG 241 ==
LOC: ER 21:28 → ED HOLD 01-25 02:19 → ORTHO 4S 01-25 06:55
PROVIDERS: ADMIT Internal Medicine; ATTEND Nurse Practitioner Family
PROC: 0W3P8ZZ Control Bleeding in Gastrointestinal Tract, Via Natural or Artificial Opening Endoscopic (ICD-10-PCS; 2025-01-26)
PROC: B4201ZZ Computerized Tomography (CT Scan) of Abdominal Aorta using Low Osmolar Contrast (ICD-10-PCS; 2025-01-26)
PROC: B4241ZZ Computerized Tomography (CT Scan) of Superior Mesenteric Artery using Low Osmolar Contrast (ICD-10-PCS; 2025-01-26)
PROC: B4281ZZ Computerized Tomography (CT Scan) of Bilateral Renal Arteries using Low Osmolar Contrast (ICD-10-PCS; 2025-01-26)
PROC: 0DC98ZZ Extirpation of Matter from Duodenum, Via Natural or Artificial Opening Endoscopic (ICD-10-PCS; 2025-01-26)
PROC: 0DB78ZX Excision of Stomach, Pylorus, Via Natural or Artificial Opening Endoscopic, Diagnostic (ICD-10-PCS; principal; 2025-01-26 10:40)
DX: K25.4 Chronic or unspecified gastric ulcer with hemorrhage (principal); T18.3XXA Foreign body in small intestine, initial encounter; K26.4 Chronic or unspecified duodenal ulcer with hemorrhage; E66.813 Obesity, class 3; G62.9 Polyneuropathy, unspecified; I10 Essential (primary) hypertension; J44.9 Chronic obstructive pulmonary disease, unspecified; Z68.42 Body mass index [BMI] 45.0-49.9, adult; Y92.89 Other specified places as the place of occurrence of the external cause
CPT/HCPCS: 36415; 43235; 74174; 80053; 80061; 83036; 83735; 83880; 84100; 85008; 85025; 85027; 85610; 85730; 86885; 86900; 86901; 87081; 93005; 94760; 97116; 97161; 99285; A6590; G0378; J0330; J2250; J2270; J2371; J2470; J2704; J3010; J3490; J7030; J7120; Q9967